=== PATIENT | male | born 1995 | race Caucasian/White ===

== ENCOUNTER 2017-04-18 20:29 | Emergency (ER) | payer MEDICAID, OTHER ==
[2017-04-18 20:36] VITALS: BP 110/61; PULSE 88; RESP 16; TEMP 98.8; O2SAT 97
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
[2017-04-18] MEDS ORDERED: IBUPROFEN 200 MG TAB PO ONE (21:47)
== END 2017-04-18 23:07 | disposition home or self-care (01) ==
DX: S00.03XA Contusion of scalp, initial encounter (principal); T14.8 Other injury of unspecified body region; V13.4XXA Pedal cycle driver injured in collision with car, pick-up truck or van in traffic accident, initial encounter